=== PATIENT | female | born 1955 ===

== ENCOUNTER 2018-03-19 19:25 | Outpatient (CLI) | payer BC | END 2018-03-19 19:26 | disposition home or self-care (01) | LOC: CARDIO 19:25 ==

== ENCOUNTER 2018-05-08 08:44 | Day surgery (SDC) | payer BC ==
[2018-05-07 11:47] VITALS: BMI 29.9
[2018-05-08 09:36] LABS: BASO # 0.05 K/mm3 (0.0-2.0); BASO % 0.6 % (0.0-3.0); EOS # 0.4 (0.0-0.7); EOS % 4.3 % (1.5-5.0); HEMOGLOBIN 14.1 g/dL (12.0-16.0); LYMPH # 2.4 (1.2-3.4); LYMPH % 27.6 % (22.0-35.0); MEAN CELL VOLUME 89.9 fl (80.0-105.0); MEAN CORPUSCULAR HEMOGLOBIN 29.6 pg (25.0-35.0); MEAN CORPUSCULAR HGB CONC 32.9 g/dl (31.0-37.0); MEAN PLATELET VOLUME 9.7 fl (7.0-11.0); MONO # 0.5 (0.1-0.6); MONO % 5.3 % (1.0-6.0); RBC 4.76 10^6/uL (3.5-6.1); RED CELL DISTRIBUTION WIDTH 13.6 % (11.5-14.5); WHITE BLOOD COUNT 8.6 10^3/uL (4.5-11.0)
[2018-05-08 09:44] LABS: BLOOD UREA NITROGEN 6 mg/dL (7-21); CALCIUM 9.8 mg/dL (8.4-10.5); GFR NON-AFRICAN AMERICAN > 60; INR 1.01; PARTIAL THROMBOPLASTIN TIME 34.8 Seconds (26.9-38.3); PROTHROMBIN TIME 11.4 SECONDS (9.4-12.5)
[2018-05-08 09:47] VITALS: O2SAT 98
--- NOTE | 2018-05-08 11:34 | CARD ---
APPROVED REPORT Date of service: 05/08/2018 EKG Measurement Heart [id number] <Conclusion> Normal sinus rhythm Normal ECG
[2018-05-08] MEDS ORDERED: Iodixanol 320 MG/ML 100 ML BOTTLE IV ONE (11:36)
[2018-05-08] MEDS ORDERED: Lidocaine 2% PF (10 ml) Amp ONE (11:36)
[2018-05-08] MEDS ORDERED: Nitroglycerin 50mg in D5W 50 MG/250 ML BOTTLE IV ONE (11:36)
[2018-05-08] MEDS ORDERED: Verapamil 2 ML ONE (11:36)
[2018-05-08] MEDS ORDERED: Iodixanol 320 MG/ML 200 ML BOTTLE IV ONE (11:36)
[2018-05-08] MEDS ORDERED: Iohexol 350mgl/ml 50 ML ONE (11:49)
[2018-05-08] MEDS ORDERED: Adenosine 90 mg/30mL IV ONE (11:49)
[2018-05-08] MEDS ORDERED: Midazolam 2 MG/2 ML VIAL ONE ×3 (13:14→13:45)
[2018-05-08] MEDS ORDERED: DiphenhydrAMINE 50 mg/ml Inj ONE ×2 (13:47→14:10)
[2018-05-08] MEDS ORDERED: Morphine 4 mg/ml ISec ONE (14:04)
[2018-05-08] MEDS ORDERED: Iodixanol 320 mg/ml 150 ml Bottle IV ONE (14:21)
[2018-05-08] MEDS ORDERED: Bacitracin 500 Units/gm Oint Foilpak UD TOP ONE (14:40)
[2018-05-08] MEDS ORDERED: Sodium Chloride 0.9% 1,000 ML IV SCH (14:45)
[2018-05-08 17:34] VITALS: TEMP 97.6
[2018-05-08] MEDS ORDERED: Bacitracin 500 Units/gm Oint Foilpak UD ONE (17:59)
--- NOTE | 2018-05-08 18:41 | CARD ---
APPROVED REPORT Date of service: 05/08/2018 EKG Measurement Heart [id number] <Conclusion> Normal sinus rhythm Normal ECG
[2018-05-08 20:58] VITALS: BP 127/71; PULSE 84; RESP 13
--- NOTE | 2018-05-08 21:54 | CARDCATH ---
PROCEDURE DATE: 05/08/2018 INDICATIONS: Ms. Munira Ashley is a 62-year-old female who was brought for evaluation of unstable angina and positive stress test. PROCEDURE PERFORMED: Left heart catheterization with selective left and right coronary angiogram, left ventriculogram, plain old balloon angioplasty attempt of diagonal and left anterior descending bifurcating high-grade calcific stenosis, unable to pass the wire in the stenting of left anterior descending, 6-Greek left femoral access, wrist band for hemostasis. ANGIOGRAPHIC FINDINGS: Left main is a large sized vessel, bifurcates into left anterior descending and left circumflex coronary artery. Left anterior descending artery is a large-sized vessel, gives off two medium-sized diagonal branches. The LAD at the bifurcation of the second diagonal has high-grade 99.9% subtotal occlusion. Diagonal at the same bifurcation had high-grade 95% stenosis. Lesion is heavily calcified. Left circumflex runs in the AV groove, gives off large obtuse marginal branch free of any obstructive disease. RCA is a large sized vessel, gives off right PDA and PLV branches free of any obstructive disease. Left ventricular ejection fraction is normal. Left ventricular end-diastolic pressure was 22 mmHg. Intervention performed using EBU 3.5 guiding catheter. Initially, a Prowater wire was used to negotiate the crossing to the diagonal, and subsequently balloon inflation of the diagonal at the bifurcation of LAD was done. Multiple attempts with multiple wires were attempted to cross into the LAD. It was unable to canalize into the LAD. At this point, we decided to abort the procedure and proceed with possible MedCath. RECOMMENDATIONS: The patient is to be transferred to [place] to undergo minimally invasive VIDALES to LAD by Dr. John Alvarez. Guideline-directed therapy for CAD. Keep the patient under close monitoring with ICU and telemetry. Mathew Burnett MD cc: Dr. Mann
== END 2018-05-08 21:07 | disposition short-term general hospital (02) ==
LOC: CATH 08:44 → 2RSO 15:12 → CATH 21:07
PROVIDERS: ATTEND Internal Medicine Interventional Cardiology
DX: I25.110 Atherosclerotic heart disease of native coronary artery with unstable angina pectoris (principal); I10 Essential (primary) hypertension
CPT/HCPCS: 36415; 80048; 83036; 85025; 85175; 85610; 85730; 86850; 86860; 86870; 86900; 92920; 93005; 93458; 99152; 99153; C1725 ×3; C1769 ×5; C1887; C1894; J1200; J1644 ×2; J2250; J2270; J2405; J3010; J7030; Q9966; Q9967 ×3